=== PATIENT | female | born 1950 | race Caucasian/White ===

== ENCOUNTER → 2021-09-01 | Outpatient (CLI) | payer MEDICARE ==
[~2021-09-01] MED LIST: CATHETER FLUSH 10 ML SYR IV PRN; HOLD METFORMIN - RECEIVED CONTRAST 20 ML VIAL IV SCH; IOHEXOL 350 MG/ML 100 ML (OMNIPAQUE 350) VIAL IV ONE; NS 100 ML (IVPB) BAG IV ONE
[2021-09-01 13:30] LABS: CREATININE SERUM 0.93 MG/DL (0.60-1.30)
--- NOTE | 2021-09-01 14:10 | Diagnostic Imaging Report ---
PROCEDURE: CT neck soft tissue with contrast. TECHNIQUE: Multiple contiguous axial images were obtained through the neck after the administration of contrast. Auto Exposure Controls were utilized during the CT exam to meet ALARA standards for radiation dose reduction. INDICATION: Dysphagia COMPARISON: None available. FINDINGS: There is asymmetric soft tissue thickening involving the right lingual tonsil is concerning for mass. The mass invades along the right anterior tonsillar pillar, and abnormal soft tissue thickening involves the glossoepiglottic fold as well as the right pharyngoepiglottic fold. No invasion of the preepiglottic fat. Overall, the mass has a maximal transverse width of 2.0 cm and AP dimension of 1.5 cm. There is no involvement of the larynx. There is a right level 2A lymph node measuring 7 x 5 mm. A right-sided level 3 lymph node measures 9 x 6 mm. No supraclavicular lymphadenopathy. Thyroid is normal. Parotid glands are normal. No hydrocephalus or space-occupying mass within the visualized aspects of the brain. No lytic or blastic skeletal lesions within the cervical spine. IMPRESSION: 1. Right oropharyngeal mass likely arises from the right lingual tonsil and has invasion of the epiglottis. 2. There are a few borderline enlarged right-sided cervical lymph nodes that could be physiologic in nature versus regional metastasis. 3. ENT consultation is recommended. PET/CT may be useful for staging exam. Dictated by: Dictated on workstation # [id number]
== END ==
LOC: RAD 13:00
PROVIDERS: ATTEND Otolaryngology Otolaryngology/Facial Plastic Surgery
DX: J39.2 Other diseases of pharynx (principal)
CPT/HCPCS: 36415; 70491; 82565; 84520

== ENCOUNTER 2021-09-07 05:35 | Outpatient (CLI) | payer MEDICARE ==
[2021-09-07] MEDS ORDERED: L.AC1CAP6 PO (13:21)
[2021-09-07] MEDS ORDERED: CHOL500049 PO (13:21)
[2021-09-07] MEDS ORDERED: FAMO40TA6 PO (13:21)
[2021-09-07] MEDS ORDERED: MIDO5TAB3 PO (13:21)
[2021-09-07] MEDS ORDERED: ASPI-999 PO (13:21)
== END 2021-09-07 13:29 | disposition home or self-care (01) ==
LOC: PREOP 05:35
PROVIDERS: ATTEND Otolaryngology Otolaryngology/Facial Plastic Surgery
DX: Z01.818 Encounter for other preprocedural examination (principal)

== ENCOUNTER 2021-09-10 07:45 | Day surgery (SDC) | payer MEDICARE ==
[~2021-09-10] VITALS: Ht 175.3 cm; Wt 50.0 kg
[2021-09-10] VITALS (10 sets, daily range): BP systolic 116–140; BP diastolic 55–87
[~2021-09-10 07:45] MED LIST changes: +ASPI-999 PO; -CATHETER FLUSH 10 ML SYR IV PRN; +CHOL500049 PO; +FAMO40TA6 PO; -HOLD METFORMIN - RECEIVED CONTRAST 20 ML VIAL IV SCH; -IOHEXOL 350 MG/ML 100 ML (OMNIPAQUE 350) VIAL IV ONE; +L.AC1CAP6 PO; +MIDO5TAB3 PO; -NS 100 ML (IVPB) BAG IV ONE
[2021-09-10] MEDS ORDERED: ONDANSETRON 4 MG/2 ML (SDV) Z0FRAN ONE ×2 (08:43→09:27)
[2021-09-10] MEDS ORDERED: FAMOTIDINE 20MG/2ML IV (PEPCID) ONE (08:44)
[2021-09-10] MEDS ORDERED: SCOPOLAMINE 1.5 MG (TRANSDERM-SCOP) PATCH ONE (08:44)
[2021-09-10] MEDS ORDERED: ONDANSETRON 4 MG/2 ML (SDV) Z0FRAN IVP ONE (08:45)
[2021-09-10] MEDS ORDERED: FAMOTIDINE 20MG/2ML IV (PEPCID) IVP ONE (08:45)
[2021-09-10] MEDS ORDERED: SCOPOLAMINE 1.5 MG (TRANSDERM-SCOP) PATCH TD ONE (08:45)
[2021-09-10 08:47] LABS: BASOPHILS % (AUTO) 1 % (0-10); EOSINOPHILS % (AUTO) 1 % (0-10); HEMATOCRIT 39 % (35-52); LYMPHOCYTES # (AUTO) 1.4 10^3/uL (1.0-4.0); LYMPHOCYTES % (AUTO) 24 % (12-44); MEAN CORPUSCULAR HEMOGLOBIN 31 pg (25-34); MEAN CORPUSCULAR HGB CONC 33 g/dL (32-36); MEAN CORPUSCULAR VOLUME 94 fL (80-99); MEAN PLATELET VOLUME 8.6 fL (9.0-12.2); MONOCYTES # (AUTO) 0.5 10^3/uL (0.0-1.0); MONOCYTES % (AUTO) 8 % (0-12); NEUTROPHILS # (AUTO) 3.8 10^3/uL (1.8-7.8); NEUTROPHILS % (AUTO) 66 % (42-75); PLATELET COUNT 278 10^3/uL (130-400); WHITE BLOOD COUNT 5.9 10^3/uL (4.3-11.0)
[2021-09-10] MEDS: LACTATED RINGERS 1,000 ML IV PRN ×2 (08:47→10:29)
--- NOTE | 2021-09-10 08:55 | Progress Note-Pre Operative ---
Pre-Operative Progress Note H&P Reviewed The H&P was reviewed, patient examined and no changes noted. Date Seen by Provider: Sep 10, 2021 Time Seen by Provider: 08:45 Date H&P Reviewed: Sep 10, 2021 Time H&P Reviewed: 08:45 Pre-Operative Diagnosis: Rigth Base of Tongue Mass GORGE HSU MD Sep 10, 2021 08:55
[2021-09-10] MEDS ORDERED: LIDOCAINE/EPI 1%-1:200,000 (XYLOCAINE) 30 ML VIAL ONE (09:01)
[2021-09-10 09:04] LABS: CALCIUM 9.5 MG/DL (8.5-10.1); CREATININE SERUM 0.76 MG/DL (0.60-1.30); POTASSIUM 4.1 MMOL/L (3.6-5.0)
[2021-09-10] MEDS ORDERED: proPOfol 200 MG/20 ML (DIPRIVAN) VIAL IV ONE (09:27)
[2021-09-10] MEDS ORDERED: NEOSTIGMINE 3 MG/3 ML VIAL ONE (09:27)
[2021-09-10] MEDS ORDERED: fentaNYL INJ 100 MCG/2 ML AMP ONE (09:27)
[2021-09-10] MEDS ORDERED: GLYCOPYRROLATE 0.2 MG/ML (ROBINUL) 2 ML VIAL ONE (09:27)
[2021-09-10] MEDS ORDERED: LIDOCAINE PF 2% 5 ML (XYLOCAINE) VIAL ONE (09:27)
[2021-09-10] MEDS ORDERED: ROCURONIUM 10 MG/ML 5 ML SYRINGE IV ONE (09:27)
[2021-09-10] MEDS ORDERED: MIDAZOLAM 2 MG/2 ML (VERSED) VIAL ONE (09:28)
--- NOTE | 2021-09-10 10:23 | Progress Note-Post Operative ---
Post-Operative Progess Note Surgeon (s)/Energy Conservation Representative (s) Surgeon GORGE HSU MD Energy Conservation Representative n/a Pre-Operative Diagnosis Rigth Base of Tongue Mass Post-Operative Diagnosis same Post-Op Procedure Note Date of Procedure: Sep 10, 2021 Name of Procedure Performed: Direct Laryngoscopy with Biopsies of Right Base of Tongue Description & Findings Description and Findings: n/a Anesthesia Type get Estimated Blood Loss minimal Packing none. Specimen(s) collected/removed biopsies of right base of tongue lateral pharyngeal wall GORGE HSU MD Sep 10, 2021 10:23
[2021-09-10] MEDS ORDERED: HYDROcodone/APAP 5 MG/325 MG (LORTAB) TAB PO PRN (10:30)
[2021-09-10] MEDS ORDERED: PROMETHAZINE INJ 25 MG/ML (PHENERGAN) AMP IV PRN (10:30)
[2021-09-10] MEDS ORDERED: SEVOFLURANE (ULTANE) 15 ML INHAL SOLN ONE (10:48)
[2021-09-10] MEDS ORDERED: morphine INJ 10 MG/ML 1ML (SYR OR VIAL) IVP ONE (11:00)
[2021-09-10] MEDS ORDERED: ONDANSETRON 4 MG/2 ML (SDV) Z0FRAN IVP PRN (11:00)
== END 2021-09-10 12:38 | disposition home or self-care (01) ==
LOC: SDC 07:45
PROVIDERS: ATTEND Otolaryngology Otolaryngology/Facial Plastic Surgery
DX: C01 Malignant neoplasm of base of tongue (principal); J02.9 Acute pharyngitis, unspecified
CPT/HCPCS: 36415; 80048; 85025; 87081; 87636; 93005

== ENCOUNTER → 2021-09-27 | Outpatient (CLI) | payer MEDICARE ==
--- NOTE | 2021-09-27 14:31 | Diagnostic Imaging Report ---
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 TECHNIQUE: Serum blood glucose level at the time of injection was 88 mg/dL. The patient was administered 11.5 mCi of F-18 FDG intravenously in the left antecubital location and PET imaging was performed from the top of the skull to the mid thighs. A noncontrast CT was also performed for attenuation correction and anatomic correlation. COMPARISON: No prior PET/CT study is available for comparison. Correlation is made with a recent CT soft tissue neck study from 09/01/2021. FINDINGS: There is symmetric activity throughout the brain. There is a hypermetabolic mass in the right base of tongue region corresponding with the patient's recently biopsied mass. This has am SUV max of 12.7. No hypermetabolic lymph nodes are identified to suggest regional metastases. No mediastinal or hilar hypermetabolism is identified. No pulmonary parenchymal hypermetabolism is identified. There is physiologic activity throughout the GI and tracts of the abdomen and pelvis. There are several areas of muscular and vascular uptake which is physiologic. Mild osseous uptake appears to be physiologic as well. IMPRESSION: Hypermetabolic mass in the right base of tongue corresponding to the recently diagnosed squamous cell neoplasm. No regional hypermetabolic lymph nodes are seen to suggest regional metastatic disease. Dictated by: Dictated on workstation # [id number]
== END ==
LOC: RAD 10:30
PROVIDERS: ATTEND Radiology Radiation Oncology
DX: C01 Malignant neoplasm of base of tongue (principal)
CPT/HCPCS: 78815; A9552

== ENCOUNTER 2021-10-01 05:33 | Outpatient (CLI) | payer MEDICARE ==
[~2021-10-01] VITALS: Ht 175.2 cm; Wt 49.9 kg
[2021-10-04] MEDS ORDERED: ASPI-999 PO (10:02)
== END 2021-10-04 10:15 | disposition home or self-care (01) ==
LOC: PREOP 05:33
PROVIDERS: ATTEND Surgery
DX: Z01.818 Encounter for other preprocedural examination (principal)

== ENCOUNTER 2021-10-08 09:17 | Day surgery (SDC) | payer MEDICARE ==
[~2021-10-08] VITALS: Ht 175.2 cm; Wt 49.9 kg
[2021-10-08] VITALS (9 sets, daily range): BP systolic 105–140; BP diastolic 5–88
[2021-10-08] MEDS: LACTATED RINGERS 1,000 ML IV PRN ×2 (09:50→13:50)
[2021-10-08] MEDS ORDERED: FAMOTIDINE 20MG/2ML IV (PEPCID) ONE (09:54)
[2021-10-08] MEDS ORDERED: ONDANSETRON 4 MG/2 ML (SDV) Z0FRAN ONE (09:54)
[2021-10-08] MEDS ORDERED: CLINDAMYCIN 600 MG/50 ML IVPB 50 ML IV ONE ×2 (09:54→10:00)
[2021-10-08] MEDS ORDERED: 0.9% SODIUM CHLORIDE PF INJ 20 ML VIAL ONE (09:59)
[2021-10-08] MEDS ORDERED: HEParin (CENTRAL IV FLUSH) 500 UNIT/5 ML SYR ONE (09:59)
[2021-10-08] MEDS ORDERED: LIDOCAINE/EPI 2% 1:100,00 (XYLOCAINE) 20 ML VIAL ONE (09:59)
[2021-10-08] MEDS ORDERED: FAMOTIDINE 20MG/2ML IV (PEPCID) IV ONE (10:00)
[2021-10-08] MEDS ORDERED: ONDANSETRON 4 MG/2 ML (SDV) Z0FRAN IV ONE (10:00)
[2021-10-08] MEDS ORDERED: fentaNYL INJ 100 MCG/2 ML AMP ONE (10:13)
[2021-10-08] MEDS ORDERED: MIDAZOLAM 2 MG/2 ML (VERSED) VIAL ONE (10:13)
[2021-10-08] MEDS ORDERED: PROPOFOL INJECTION 50 ML IV ONE (10:13)
--- NOTE | 2021-10-08 11:20 | Progress Note-Pre Operative ---
Pre-Operative Progress Note H&P Reviewed The H&P was reviewed, patient examined and no changes noted. Date Seen by Provider: Oct 08, 2021 Time Seen by Provider: 11:20 Date H&P Reviewed: Oct 08, 2021 Time H&P Reviewed: 11:20 Pre-Operative Diagnosis: throat cancer TOMMY BILLINGSLEY DO Oct 08, 2021 11:20
[2021-10-08] MEDS ORDERED: PHENYLEPHRINE 100 MCG/ML 10 ML (ANESTHESIA) SYR ONE (12:00)
[2021-10-08] MEDS ORDERED: LIDOCAINE PF 2% 5 ML (XYLOCAINE) VIAL ONE (12:18)
--- NOTE | 2021-10-08 12:30 | Progress Note-Post Operative ---
Post-Operative Progess Note Surgeon (s)/Tool Technician (s) Surgeon TOMMY BILLINGSLEY DO Tool Technician: Andrea Gamboa Pre-Operative Diagnosis throat cancer Post-Operative Diagnosis same Procedure & Operative Findings Date of Procedure 10/08/21 Procedure Performed/Findings u/s guided port placement right ij, percutaneous gastrostomy tube placement Anesthesia Type mac c local Estimated Blood Loss Estimated blood loss (mL): minimal Specimens/Packing Specimens Removed na TOMMY BILLINGSLEY DO Oct 08, 2021 12:30
--- NOTE | 2021-10-08 12:34 | Discharge Inst-Simple/Standard ---
Discharge Inst-Standard Patient Instructions/Follow Up Plan of Care/Instructions/FU: 2 weeks [place] Activity as Tolerated: Yes Discharge Diet: Regular Diet (24 hours then advance as tolerates), Liquid Diet Other Inst to Patient Follow up Appt: Make appointment for 2 week. Instructions: No lifting greater than 10 pounds. No strenuous activity. May shower in 24 hours, no tub bath or soaking. Use incentive spirometer at home as directed. No Smoking Skin/Wound Care: You have special glue over your incision that will fall off on it's own. Ice pack on 15 min and off 30 min and repeat for port right chest area. Flush your gastrostomy tube daily with water. Rotate the bolster 2 times daily. Symptoms to Report: Appetite Changes, Extremity Discoloration, Numbness/Tingling, Swelling Increased, Bleeding Excessive, Eyesight Changes, Pain Increased, Urine Color Change, Constipation(Persistent), Fever over 101 degree F, Pain/Pressure in chest, Urinating Difficulty, Cough Up/Vomit Blood, Heart Beat Irreg/Pounding, Pain/Pressure in jaw, Vaginal Bleeding Increase, Cramps in feet or legs, Lightheadedness, Pain/Pressure in shoulder, Diarrhea(Persistent), Memory Changes Suddenly, Questions/Concerns, Weight gain consecutive days, Dizziness/Fainting, Nausea/Vomiting, Shortness of Breath, Weight gain over 2 pounds If questions or concerns contact your physician Or seek help at emergency department. TOMMY BILLINGSLEY DO Oct 08, 2021 12:34
[2021-10-08] MEDS ORDERED: HYDROmorphone 2 MG/ML VIAL (DILAUDID) IV ONE (12:45)
--- NOTE | 2021-10-08 12:53 | Diagnostic Imaging Report ---
INDICATION: Fluoroscopy for port placement. Fluoroscopy was provided in the OR during port placement. 19 seconds of fluoroscopic time was utilized. A single image was obtained demonstrating a right chest wall port with tip overlying SVC. IMPRESSION: Fluoroscopy for port placement. Dictated by: Dictated on workstation # [id number]
--- NOTE | 2021-10-08 12:55 | Diagnostic Imaging Report ---
Indication: Port placement. Time Of Exam: 12:52 PM No prior studies are available for comparison. Heart is mildly enlarged. Right chest wall port has tip overlying SVC. Lungs are clear. There is no pneumothorax. There is no effusion. Impression: Right chest wall port placement. No complicating features are identified. Dictated by: Dictated on workstation # [id number]
--- NOTE | 2021-10-08 13:51 | Anesthesia-General Post-Op ---
MAC Patient Condition Mental Status/LOC: Same as Preop Cardiovascular: Satisfactory Nausea/Vomiting: Absent Respiratory: Satisfactory Pain: Controlled Complications: Absent Post Op Complications Complications None Follow Up Care/Instructions Patient Instructions None needed. Anesthesiology Discharge Order Discharge Order Patient is doing well, no complaints, stable vital signs, no apparent adverse anesthesia problems. No complications reported per nursing. FREDDY VO CRNA Oct 08, 2021 13:51
--- NOTE | 2021-10-09 02:17 | OPERATIVE REPORT ---
DATE OF SERVICE: 10/08/2021 PREOPERATIVE DIAGNOSIS: Throat cancer. POSTOPERATIVE DIAGNOSIS: Throat cancer. PROCEDURE: Ultrasound-guided port placement, right internal jugular vein and percutaneous endoscopic gastrostomy tube. SURGEON: Dr. Tommy Duvall. FALSEWORK BUILDER: . ANESTHESIA: MAC with local. ESTIMATED BLOOD LOSS: Minimal. COMPLICATIONS: None. INDICATIONS: The patient is a 71-year-old female with recent diagnosis of throat cancer needing a port placed for chemotherapy. The gastrostomy tube placed in case needs tube feeds. The patient understands risks and benefits of procedures and wishes to proceed. Consent was signed in the chart. DESCRIPTION OF PROCEDURE: The patient was taken to the operating suite. She was prepped and draped in sterile fashion. Timeout was performed. Ultrasound was used to isolate the right internal jugular vein. Local anesthetic was infiltrated in the right neck and a micro access needle was then used to access the right internal jugular vein under ultrasound guidance. Dark nonpulsatile blood was withdrawn. The micro access wire was inserted, and the needle was removed. Fluoroscopy assured proper placement. An 11-blade scalpel was used to make a small skin incision at the insertion point. Dilator was then advanced over the wire and the wire and the dilator were removed. The normal guidewire was placed through the sheath and the sheath was then removed. Fluoroscopy again assured proper placement. Hemostat was used to hold the wire in place. Local anesthetic was infiltrated over the right chest and a 15-blade scalpel was used to make a small skin incision and a pocket was created for the port to be placed. Dilator sheath was then advanced over the wire under fluoroscopy and the wire and dilator were removed. The [place] catheter was inserted through the sheath and the sheath was then removed. The catheter was then tunneled from the insertion point on the right neck down towards the pocket. This was then cut to length using fluoroscopy and attached to the port in the usual fashion. The port was then placed within the pocket and the port was then accessed. It jerad blood without difficulty and also flushed without difficulty, first with saline and then with heparin. The subcutaneous tissues were then reapproximated using 3-0 Vicryl. Skin was then closed with Skin Affix after it was washed and dried. Percutaneous endoscopic gastrostomy tube placement then performed. Scope was inserted in mouth, down the esophagus, stomach and into the duodenum without difficulty. There were no polyps, masses or ulcerations within the duodenum. Scope was slowly retracted back into the stomach where it was further insufflated. The light was able to be visualized through the abdominal wall. The stomach was able to be visualized well. The abdomen was then prepped and draped in sterile fashion. Local anesthetic was infiltrated and 11 blade scalpel was used to make a small skin incision. Angiocath needle was then inserted through the abdominal wall into the stomach, which was visualized in the stomach, which a snare was then used to snare the catheter. The guidewire was inserted through the sheath and then brought out through the mouth. The gastrostomy tube was attached to the wire, which was then brought out through the incision without difficulty. Scope was then reinserted into the stomach, visualizing the gastrostomy tube in good location. The gastrostomy tube then had the bolster secured down. The tube was then cut to length and the area was washed and dried and sterile bandages were applied. The patient tolerated the procedure well without any complications. She was taken to recovery room in stable condition. Chest x-ray pending. assisted in placing the percutaneous gastrostomy tube. Job ID: [id number] DocumentID: [id number] Dictated Date: 10/08/2021 23:23:43 Well Drill Operator Date: 10/09/2021 02:16:19 Dictated By: TOMMY DUVALL DO
== END 2021-10-08 14:30 ==
LOC: SDC 09:17
PROVIDERS: ATTEND Surgery
DX: C14.0 Malignant neoplasm of pharynx, unspecified (principal); I87.2 Venous insufficiency (chronic) (peripheral)
CPT/HCPCS: 36561; 43246; 71045; 76000; 87081; C1788

== ENCOUNTER 2021-11-12 08:53 | Outpatient (RCR) | payer MEDICARE | END 2021-11-13 | disposition home or self-care (01) | LOC: ONC 08:53 | PROVIDERS: ATTEND Radiology Radiation Oncology | DX: Z51.0 Encounter for antineoplastic radiation therapy (principal); C01 Malignant neoplasm of base of tongue | CPT/HCPCS: 77336; 77386 ==

== ENCOUNTER 2021-12-02 09:27 | Outpatient (RCR) | payer MEDICARE | END 2021-12-14 | disposition home or self-care (01) | LOC: ONC 09:27 | PROVIDERS: ATTEND Radiology Radiation Oncology | DX: Z51.0 Encounter for antineoplastic radiation therapy (principal); C01 Malignant neoplasm of base of tongue | CPT/HCPCS: 77336; 77386 ==

== ENCOUNTER 2022-01-06 08:42 | Outpatient (RCR) | payer MEDICARE | END 2022-01-13 | LOC: ONC 08:42 | PROVIDERS: ATTEND Radiology Radiation Oncology | DX: Z47.89 Encounter for other orthopedic aftercare (principal) | CPT/HCPCS: 99213 ==

== ENCOUNTER 2022-03-24 10:45 | Outpatient (RCR) | payer MEDICARE | END 2022-04-15 | disposition home or self-care (01) | LOC: ONC 10:45 | PROVIDERS: ATTEND Radiology Radiation Oncology | DX: C01 Malignant neoplasm of base of tongue (principal) | CPT/HCPCS: 99213 ==

== ENCOUNTER 2022-07-07 05:42 | Outpatient (CLI) | payer MEDICARE ==
[~2022-07-07] VITALS: Ht 175.3 cm; Wt 44.9 kg
== END 2022-07-12 17:26 | disposition home or self-care (01) ==
LOC: PREOP 05:42
PROVIDERS: ATTEND Surgery
DX: Z01.818 Encounter for other preprocedural examination (principal)

== ENCOUNTER 2022-07-14 05:53 | Day surgery (SDC) | payer MEDICARE ==
[~2022-07-14] VITALS: Ht 175.3 cm; Wt 44.9 kg
[2022-07-14] VITALS (9 sets, daily range): BP systolic 71–139; BP diastolic 43–68
[2022-07-14] MEDS ORDERED: LACTATED RINGERS 1,000 ML IV PRN (06:00)
[2022-07-14] MEDS ORDERED: CLINDAMYCIN 600 MG/50 ML IVPB 50 ML IV ONE (06:00)
[2022-07-14] MEDS ORDERED: PROPOFOL INJECTION 50 ML IV ONE (07:19)
[2022-07-14] MEDS ORDERED: MIDAZOLAM 2 MG/2 ML (VERSED) VIAL ONE (07:20)
[2022-07-14] MEDS ORDERED: LIDOCAINE/EPI 1%-1:100,000 (XYLOCAINE) 30ML ONE (07:44)
--- NOTE | 2022-07-14 08:04 | Progress Note-Pre Operative ---
Pre-Operative Progress Note Date of Available H&P: Jul 04, 2022 Date H&P Reviewed: Jul 14, 2022 Time H&P Reviewed: 07:45 History & Physical: H&P Reviewed, Patient Examed, No changes noted Pre-Operative Diagnosis: hx throat ca TOMMY BILLINGSLEY DO Jul 14, 2022 08:04
[2022-07-14] MEDS ORDERED: LIDOCAINE/EPI 1%-1:100,000 (XYLOCAINE) 30ML INJ ONE (08:18)
--- NOTE | 2022-07-14 08:28 | Progress Note-Post Operative ---
Post-Operative Progess Note Surgeon (s)/Superintendent Building (s) Surgeon TOMMY BILLINGSLEY DO Superintendent Building: na Pre-Operative Diagnosis hx throat ca Post-Operative Diagnosis same Procedure & Operative Findings Date of Procedure 07/14/22 Procedure Performed/Findings PROCEDURE: Removal of port, COMPLICATIONS: None. INDICATIONS: The patient is a 72 year-old female who had a port previously placed. Patient is ok to have port removed. The patient was explained risk and benefits of the procedure and wished to proceed with procedure. Consent was signed on the chart. PROCEDURE: The patient was taken to the operating suite and was prepped and draped in sterile fashion. A surgical pause was performed. Local anesthetic was infiltrated to the area around the port. A number 15 blade scalpel was used to make an incision. Cautery was used to dissect down to the port which was then grasped and then dissected around. The catheter was removed in its entirety. The port was then able to be dissected out of the pocket and elevated. The wound was then irrigated with copious amounts of irrigation. Hemostasis had been achieved. The subcutaneous tissues were then reapproximated using 3-0 Vicryl. Skin was then closed using Skin Affix placed over the incision. The patient tolerated the procedure well without complication and was taken to recovery room in stable condition. Anesthesia Type mac c local Estimated Blood Loss Estimated blood loss (mL): minimal Specimens/Packing Specimens Removed TOMMY Lobo DO Jul 14, 2022 08:28
--- NOTE | 2022-07-14 08:33 | Discharge Inst-Simple/Standard ---
Discharge Inst-Standard Patient Instructions/Follow Up Plan of Care/Instructions/FU: 2 weeks [place] Activity as Tolerated: Yes Discharge Diet: Regular Diet Other Inst to Patient Follow up Appt: Make appointment for 2 week. Instructions: No strenuous activity. May shower in 24 hours, no tub bath or soaking. Use incentive spirometer at home as directed. No Smoking Skin/Wound Care: You have special glue over your incision that will fall off on it's own. Symptoms to Report: Appetite Changes, Extremity Discoloration, Numbness/Tingling, Swelling Increased, Bleeding Excessive, Eyesight Changes, Pain Increased, Urine Color Change, Constipation(Persistent), Fever over 101 degree F, Pain/Pressure in shaheed st, Urinating Difficulty, Cough Up/Vomit Blood, Heart Beat Irreg/Pounding, Pain/Pressure in jaw, Vaginal Bleeding Increase, Cramps in feet or legs, Lightheadedness, Pain/Pressure in shoulder, Diarrhea(Persistent), Memory Changes Suddenly, Questions/Concerns, Weight gain consecutive days, Dizziness/Fainting, Nausea/Vomiting, Shortness of Breath, Weight gain over 2 pounds If questions or concerns contact your physician Or seek help at emergency department. TOMMY BILLINGSLEY DO Jul 14, 2022 08:33
--- NOTE | 2022-07-14 08:38 | Anesthesia-General Post-Op ---
MAC Patient Condition Mental Status/LOC: Same as Preop Cardiovascular: Satisfactory Nausea/Vomiting: Absent Respiratory: Satisfactory Pain: Controlled Complications: Absent Post Op Complications Complications None Follow Up Care/Instructions Patient Instructions None needed. Anesthesiology Discharge Order Discharge Order Patient is doing well, no complaints, stable vital signs, no apparent adverse anesthesia problems. No complications reported per nursing. MARCO A THURSTON CRNA Jul 14, 2022 08:38
[2022-07-14] MEDS ORDERED: MEPERIDINE (DEMEROL) INJ 50 MG/ML IVP ONE (08:45)
[2022-07-14] MEDS ORDERED: morphine INJ 10 MG/ML 1ML (SYR OR VIAL) IVP ONE (08:45)
[2022-07-14] MEDS ORDERED: ONDANSETRON 4 MG/2 ML (SDV) Z0FRAN IVP PRN (08:45)
== END 2022-07-14 09:45 | disposition home or self-care (01) ==
LOC: SDC 05:53
PROVIDERS: ATTEND Surgery
DX: Z45.2 Encounter for adjustment and management of vascular access device (principal); C14.0 Malignant neoplasm of pharynx, unspecified; Z28.310 Unvaccinated for COVID-19
CPT/HCPCS: 87081

== ENCOUNTER 2022-09-15 10:35 | Outpatient (RCR) | payer MEDICARE | END 2022-10-14 | disposition home or self-care (01) | LOC: ONC 10:35 | PROVIDERS: ATTEND Radiology Radiation Oncology | DX: C01 Malignant neoplasm of base of tongue (principal) | CPT/HCPCS: 99213 ==